=== PATIENT | male | born 1965 | race Caucasian/White ===

== ENCOUNTER 2016-10-09 13:38 | Emergency (ER) | payer OTHER ==
[~2016-10-09] VITALS: Ht 175.3 cm; Wt 93.9 kg
[~2016-10-09 13:38] MED LIST: METF500T64; [UNRECOGNIZED DRUG - CODE]
[2016-10-09 14:03] VITALS: BP 151/94
[2016-10-09] MEDS ORDERED: WARF10TA PO ×2 (14:23)
[2016-10-09] MEDS ORDERED: METF1000 PO (14:23)
[2016-10-09] MEDS ORDERED: OMEP20TC24 PO (14:23)
[2016-10-09] MEDS ORDERED: LISI-420 PO (14:23)
--- NOTE | 2016-10-09 18:46 | NUR ---
Patient to bed 08.
--- NOTE | 2016-10-09 18:55 | NUR ---
DR SANCHEZ ASSESSING THE PT AT BEDSIDE
--- NOTE | 2016-10-09 19:00 | NUR ---
PATIENT PRESENTS TO ED WITH C/O PAIN ON NECK/RIGHT SHOULDER YESTERDAY WHILE PUTTING AWAY BOXES IN THE GARAGE SHELF. HX: DM,OSTEOPOROSIS,DVT RT. LEG,CANCER PROSTATE/COLON,HIGH CHOL,ESOPHAGITIS,HIGH CHOL,HTN . DENIES N/V/D; SKIN IS PINK/WARM/DRY; AAOX4 WITH EVEN AND STEADY GAIT; LUNGS CLEAR BL; HR EVEN AND REGULAR; PT DENIES ANY FEVER, CP, SOB, OR COUGH AT THIS TIME; PATIENT STATES PAIN OF 6/10 AT THIS TIME; VSS; PATIENT POSITIONED FOR COMFORT; HOB ELEVATED; BEDRAILS UP X2; BED DOWN. ER MD MADE AWARE OF PT STATUS.
--- NOTE | 2016-10-09 19:15 | NUR ---
PT TAKEN OFF THE UNIT FOR XRAY VIA WHEEL CHAIR BY JOSE GALE
--- NOTE | 2016-10-09 19:17 | NUR ---
REPORT TO RN CLARIZE FOR CONTINUATION OF CARE
--- NOTE | 2016-10-09 19:18 | NUR ---
RECEIVED REPORT FROM COLTON GUERRERO. PT STILL IN XRAY.
--- NOTE | 2016-10-09 20:24 | NUR ---
PT RESTING COMFORTABLY, NO SIGNS OF DISTRESS AT THIS TIME.
--- NOTE | 2016-10-09 21:45 | NUR ---
PT RESTING COMFORTABLY ON BED, NO SGNS OF DISTRESS NOTED.
[2016-10-09 22:35] VITALS: BP 140/89
--- NOTE | 2016-10-09 22:35 | NUR ---
Patient discharged with v/s stable. Written and verbal after care instructions given and explained. Patient alert, oriented and verbalized understanding of instructions. Ambulatory with steady gait. All questions addressed prior to discharge. ID band removed. Patient advised to follow up with PMD. Rx of IBUPROFEN 800MG 1 TAB ORALLY 3 TIMES A DAY BY MOUTH NEEDED, NORCO 5MG-325MG TAB 1 TO 2 TABS EVERY 6 HOURS BY MOUTH NEEDED, FLEXERIL 10MG TAB 1 TAB ORALLY EVERY 8 HOURS BY MOUTH NEEDED FOR MUSCLE PAIN given. Patient educated on indication of medication including possible reaction and side effects. Opportunity to ask questions provided and answered.
== END 2016-10-09 22:35 | disposition home or self-care (01) ==
LOC: MED 13:38
DX: S16.1XXA Strain of muscle, fascia and tendon at neck level, initial encounter (principal); E11.9 Type 2 diabetes mellitus without complications; I10 Essential (primary) hypertension; E78.00 Pure hypercholesterolemia, unspecified; Z88.6 Allergy status to analgesic agent; Z85.038 Personal history of other malignant neoplasm of large intestine; Z85.51 Personal history of malignant neoplasm of bladder; X58.XXXA Exposure to other specified factors, initial encounter; Y93.89 Activity, other specified; Y92.89 Other specified places as the place of occurrence of the external cause; Y99.8 Other external cause status
CPT/HCPCS: 72050; 82948; 99284

== ENCOUNTER 2018-04-12 20:36 | Emergency (ER) | payer OTHER ==
[~2018-04-12] VITALS: Ht 175.3 cm; Wt 97.5 kg
[~2018-04-12 20:36] MED LIST changes: +LISI-420 PO; +METF1000 PO; -METF500T64; +OMEP20TC12 PO; +WARF10TA PO; -[UNRECOGNIZED DRUG - CODE]
[2018-04-12 20:43] VITALS: BP 147/85
[2018-04-12 21:23] LABS: BASOPHILS % (AUTO) 0.1 % (0.0-2.0); EOSINOPHILS # (AUTO) 0.1 K/uL (0-0.4); EOSINOPHILS % (AUTO) 2.2 % (0.0-4.0); HEMATOCRIT 41.8 % (36-52); HEMOGLOBIN 13.8 g/dL (12.0-18.0); LYMPHOCYTES # (AUTO) 1.2 K/uL (2.0-11.5); LYMPHOCYTES % (AUTO) 21.1 % (20.5-51.1); MEAN CORPUSCULAR HEMOGLOBIN 31 pg (27-31); MEAN CORPUSCULAR HGB CONC 33 g/dL (33-37); MEAN CORPUSCULAR VOLUME 93.2 fL (80-94); MONOCYTES # (AUTO) 0.5 K/uL (0.8-1.0); MONOCYTES % (AUTO) 8.3 % (1.7-9.3); NEUTROPHILS # (AUTO) 3.9 K/uL (1.8-7.7); NEUTROPHILS % (AUTO) 68.3 % (42.2-75.2); PLATELET COUNT (AUTO) 186 K/uL (140-450); RED BLOOD CELL COUNT(AUTO) 4.49 MIL/uL (4.20-6.10); RED CELL DISTRIBUTION WIDTH 13.1 % (11.6-13.7); WHITE BLOOD COUNT (AUTO) 5.7 K/uL (4.8-10.8)
[2018-04-12 21:38] LABS: ANION GAP 12.6 (8-16); CARBON DIOXIDE 27.6 mmol/L (21-32); CREATININE 1.1 mg/dL (0.7-1.3); POTASSIUM 4.2 mmol/L (3.5-5.1)
[2018-04-12 21:44] LABS: ALBUMIN 3.5 g/dL (3.4-5.0); TOTAL BILIRUBIN 0.3 mg/dL (0.0-1.0)
[2018-04-12 22:15] VITALS: BP 144/84
== END 2018-04-12 22:15 | disposition home or self-care (01) ==
LOC: MED 20:36
DX: R10.9 Unspecified abdominal pain (principal); R11.0 Nausea; R19.7 Diarrhea, unspecified; R68.83 Chills (without fever); E11.9 Type 2 diabetes mellitus without complications; I10 Essential (primary) hypertension; Z88.5 Allergy status to narcotic agent; Z85.038 Personal history of other malignant neoplasm of large intestine; Z85.51 Personal history of malignant neoplasm of bladder; Z79.84 Long term (current) use of oral hypoglycemic drugs; Z79.899 Other long term (current) drug therapy
CPT/HCPCS: 36415; 80053; 83690; 85025; 99284

== ENCOUNTER 2018-07-15 20:29 | Emergency (ER) | payer OTHER ==
[~2018-07-15] VITALS: Ht 175.3 cm; Wt 94.8 kg
[2018-07-15 20:52] VITALS: BP 162/86
--- NOTE | 2018-07-15 20:52 | NUR ---
TO LOBBY AWAITNG BED, VSS.
--- NOTE | 2018-07-15 22:45 | NUR ---
PT BIB FAMILY FOR GETTING BBQ EMBER IN L EYE. PT REPORTS LITE BBQ EMBER GETTING IN EYE, PT STATES HE TRIED WASHING HIS EYE TO NO RELEIF. NO ABLE TO VISUALIZE ANY DEBREE IN EYE. ER MD TO SEE PT.
[2018-07-15] MEDS ORDERED: TETRACAINE HCL/PF 0.5% OPTH 4 ML BTL OP ONE (23:00)
[2018-07-15] MEDS ORDERED: FLUORESCEIN OPTH STRIP 0.6 MG OP ONE (23:00)
--- NOTE | 2018-07-15 23:35 | NUR ---
AT BEDSIDE PERFORMING BEDSIDE PROCEDURE
[2018-07-16 00:09] VITALS: BP 160/86
--- NOTE | 2018-07-16 00:09 | NUR ---
Patient discharged with v/s stable. Written and verbal after care instructions given and explained. Patient alert, oriented and verbalized understanding of instructions. Ambulatory with steady gait. All questions addressed prior to discharge. ID band removed. Patient advised to follow up with PMD. Rx of PERCOCET AND DOXYCYCLINE given. Patient educated on indication of medication including possible reaction and side effects. Opportunity to ask questions provided and answered.
== END 2018-07-16 00:09 | disposition home or self-care (01) ==
LOC: MED 20:29
DX: S05.02XA Injury of conjunctiva and corneal abrasion without foreign body, left eye, initial encounter (principal); H11.422 Conjunctival edema, left eye; E11.9 Type 2 diabetes mellitus without complications; I10 Essential (primary) hypertension; Z85.038 Personal history of other malignant neoplasm of large intestine; Z85.51 Personal history of malignant neoplasm of bladder; Z79.84 Long term (current) use of oral hypoglycemic drugs; Z79.899 Other long term (current) drug therapy; Z88.5 Allergy status to narcotic agent; W22.8XXA Striking against or struck by other objects, initial encounter; Y93.89 Activity, other specified; Y92.89 Other specified places as the place of occurrence of the external cause; Y99.8 Other external cause status
CPT/HCPCS: 99283

== ENCOUNTER 2019-08-06 06:21 | Day surgery (SDC) | payer OTHER ==
[~2019-08-06] VITALS: Ht 175.3 cm; Wt 94.8 kg
[2019-08-06] MEDS ORDERED: LIDOCAINE 1% 500 MG/50 ML VIAL ONE (07:09)
[2019-08-06] MEDS ORDERED: diphenhydrAMINE 50 MG/ML VIAL ONE (07:34)
[2019-08-06] MEDS ORDERED: MIDAZOLAM 2 MG/2 ML VIAL ONE (07:35)
[2019-08-06] MEDS ORDERED: fentaNYL 0.05 MG/ML VIAL ONE (07:35)
[2019-08-06] MEDS ORDERED: ONDANSETRON 4 MG/2 ML VIAL IVP PRN (08:30)
[2019-08-06] MEDS ORDERED: HYDROmorphone 1 MG/ML AMP IVP PRN (08:30)
[2019-08-06] MEDS ORDERED: HYDROcodone/APAP 5/325 MG 1 TAB TAB PO PRN (08:30)
[2019-08-06] MEDS ORDERED: MORPHINE SULFATE 2 MG/ML SYR IVP PRN (08:30)
== END 2019-08-06 09:35 | disposition home or self-care (01) ==
LOC: MDS 06:21 → MMU 06:28 → MDS 09:35
PROVIDERS: ATTEND Surgery
DX: Z45.2 Encounter for adjustment and management of vascular access device (principal); K40.90 Unilateral inguinal hernia, without obstruction or gangrene, not specified as recurrent; M62.08 Separation of muscle (nontraumatic), other site; Z79.82 Long term (current) use of aspirin; Z79.84 Long term (current) use of oral hypoglycemic drugs; Z79.899 Other long term (current) drug therapy; Z85.038 Personal history of other malignant neoplasm of large intestine; Z88.5 Allergy status to narcotic agent
CPT/HCPCS: 36589; J0690; J2001; J2250; J3010; J7030; J7060; J1200